=== PATIENT | female | born 1995 | race Caucasian/White ===

== ENCOUNTER 2017-05-11 20:32 | Emergency (ER) | payer OTHER ==
[~2017-05-11] VITALS: Ht 157.5 cm; Wt 63.5 kg
[2017-05-11 20:35] VITALS: BP_SYST 110
[2017-05-11] MEDS ORDERED: ACETAMINOPHEN 500 MG TABLET PO ONE (21:00)
[2017-05-11] MEDS ORDERED: KETOROLAC TROMETHAMINE 30 MG VIAL IVP ONE (21:00)
[2017-05-11] MEDS ORDERED: ONDANSETRON HCL 4 MG/2 ML VIAL IVP ONE (21:00)
[2017-05-11] MEDS ORDERED: NACL 0.9% 1,000 ML IV ONE (21:00)
[2017-05-11] MEDS ORDERED: DIPHENHYDRAMINE INJ 50 MG/ML VIAL IVP ONE (21:00)
[2017-05-11 22:10] VITALS: BP_SYST 106
== END 2017-05-11 22:10 | disposition home or self-care (01) ==
LOC: SED 20:32
DX: G43.909 Migraine, unspecified, not intractable, without status migrainosus (principal); R50.9 Fever, unspecified
CPT/HCPCS: 36415; 86710; 96361; 96374; 96375; 99284; J1200; J1885; J2405